=== PATIENT | male | born 1975 | race Two or more races ===

== ENCOUNTER 2017-07-28 10:55 | Inpatient (IN) | payer OTHER ==
[2017-07-28 11:21] VITALS: BMI 31.1
--- NOTE | 2017-07-28 13:43 | HP ---
CIWA Score - CIWA Score Nausea/Vomitin-Mild Nausea/No Vomiting Muscle Tremors: 4-Moderate,w/Arms Extend Anxiety: 4-Mod. Anxious/Guarded Agitation: 4-Moderately Restless Paroxysmal Sweats: 2 Orientation: 0-Oriented Tacttile Disturbances: 1-Very Mild Itch/Numbness Auditory Disturbances: 0-None Visual Disturbances: 0-None Headache: 1-Very Mild CIWA-Ar Total Score: 17 Admission ROS BHS - HPI Chief Complaint: alcohol withdrawal sx Allergies/Adverse Reactions: Allergies Allergy/AdvReac Type Severity Reaction Status Date / Time No Known Allergies Allergy Verified 07/28/17 12:30 History of Present Illness: 41 years male with long history of alcohol nicotine dependence has hypertension depression is admitted to detox Exam Limitations: No Limitations - Ebola screening Have you traveled outside of the country in the last 21 days: No Have you had contact with anyone from an Ebola affected area: No Have you been sick,other than usual withdrawal symptoms: No Do you have a fever: No - Review of Systems Constitutional: Changes in sleep, Weight Stable EENT: reports: Blurred Vision (needed eye glasses), Nose Congestion Respiratory: reports: SOB with Exertion Cardiac: reports: No Symptoms Reported GI: reports: Nausea, Poor Fluid Intake, Abdominal cramping : reports: No Symptoms Reported Musculoskeletal: reports: Back Pain, Joint Pain, Muscle Pain, Neck Pain Integumentary: reports: No Symptoms Reported Neuro: reports: Tremors Endocrine: reports: No Symptoms Reported Hematology: reports: No Symptoms Reported Psychiatric: reports: Judgement Intact, Orientated x3, Anxious, Depressed Other Systems: Reviewed and Negative Patient History - Patient Medical History Hx Anemia: No Hx Asthma: No Hx Chronic Obstructive Pulmonary Disease (COPD): No Hx Cardiac Disorders: No Hx Congestive Heart Failure: No Hx Hypertension: Yes (not on meds.) Hx Hypercholesterolemia: No Hx Pacemaker: No HX Cerebrovascular Accident: No Hx Seizures: No Hx Diabetes: No Hx Gastrointestinal Disorders: No Hx Liver Disease: No Hx Genitourinary Disorders: No Hx Sexually Transmitted Disorders: No Hx Renal Disease (ESRD): No Hx Thyroid Disease: No Hx Human Immunodeficiency Virus (HIV): No Hx Hepatitis C: No Hx Depression: Yes Hx Suicide Attempt: No Hx Bipolar Disorder: No Hx Schizophrenia: No - Patient Surgical History Past Surgical History: Yes Hx Neurologic Surgery: No Hx Cataract Extraction: No Hx Cardiac Surgery: No Hx Lung Surgery: No Hx Breast Surgery: No Hx Breast Biopsy: No Hx Abdominal Surgery: No Hx Appendectomy: No Hx Cholecystectomy: No Hx Genitourinary Surgery: No Hx Orthopedic Surgery: Yes (L mandible fx 2017) Other Surgical History: L inguinal hernia repair. "child" Anesthesia Reaction: No - PPD History Previous Implant?: Yes Documented Results: Negative w/o proof Implanted On Prior R Admission?: No PPD to be Administered?: Yes - Smoking Cessation Smoking history: Current every day smoker Have you smoked in the past 12 months: Yes Aproximately how many cigarettes per day: 20 Cigars Per Day: 0 Hx Chewing Tobacco Use: No Initiated information on smoking cessation: Yes 'Breaking Loose' booklet given: 07/28/17 - Substance & Tx. History Hx Alcohol Use: Yes Hx Substance Use: No Hx Substance Use Treatment: No (1st dertox) - Substances Abused Alcohol Route: Oral Frequency: Daily Amount used: 1 pint vodka Age of first use: 16 Date of Last Use: 07/28/17 Family Disease History - Family Disease History Family Disease History: Respiratory: Father (), Other: Father Admission Physical Exam BHS - Vital Signs Vital Signs: Vital Signs - 24 hr 07/28/17 11:16 Temperature 97.6 F Pulse Rate 86 Respiratory 18 Rate Blood Pressure 152/93 - Physical General Appearance: Yes: Appropriately Dressed, Moderate Distress, Alcohol on Breath, Tremorous, Irritable, Sweating, Anxious HEENTM: Yes: Hearing grossly Normal, Normocephalic, Normal Voice Respiratory: Yes: Chest Non-Tender, Lungs Clear, Normal Breath Sounds, No Respiratory Distress, No Accessory Muscle Use Neck: Yes: Supple, Trachea in good position Breast: Yes: Breasts Symetrical, No Discharge Cardiology: Yes: Regular Rhythm, Regular Rate, S1, S2 Abdominal: Yes: Non Tender, Flat, Soft Genitourinary: Yes: Within Normal Limits Back: Yes: Normal Inspection Musculoskeletal: Yes: full range of Motion, Gait Steady, Back pain, Muscle Pain Extremities: Yes: Normal Inspection (fell 07/27/17 multiple supervisual skin abrasion), Normal Range of Motion, Non-Tender, Tremors Neurological: Yes: Fully Oriented, Alert, Motor Strength 5/5, Normal Response, Depressed Affect Integumentary: Yes: Warm Lymphatic: Yes: Within Normal Limits - Diagnostic (1) Alcohol dependence with uncomplicated withdrawal Current Visit: Yes Status: Acute (2) Hypertension Current Visit: Yes Status: Chronic Qualifiers: Hypertension type: essential hypertension Qualified Code(s): I10 - Essential (primary) hypertension (3) Stuffy and runny nose Current Visit: Yes Status: Chronic (4) Depression (emotion) Current Visit: Yes Status: Suspected Qualifiers: Depression Type: dysthymia Qualified Code(s): F34.1 - Dysthymic disorder (5) Swelling of both ankles Current Visit: Yes Status: Chronic (6) Nicotine dependence Current Visit: Yes Status: Acute Qualifiers: Nicotine product type: cigarettes Substance use status: in withdrawal Qualified Code(s): F17.213 - Nicotine dependence, cigarettes, with withdrawal Cleared for Admission S - Detox or Rehab [facility] Level of Care: Medically Managed Detox Regimen/Protocol: Librium S Breath Alcohol Content Breath Alcohol Content: 0.073 Urine Drug Screen - Results Drug Screen Negative: Yes
[2017-07-28] MEDS ORDERED: MENTHOL/PHENOL 1 EACH UD MM PRN (13:48)
[2017-07-28] MEDS ORDERED: LOPERAMIDE HCL 2 MG CAPSULE PO PRN (13:48)
[2017-07-28] MEDS ORDERED: guaiFENesin/D-METHORPHAN HB 10 ML UNIT-DOSE CUPS PO PRN (13:48)
[2017-07-28] MEDS ORDERED: P-EPHED 60MG/TRIPROLIDI 2.5MG TABLET PO PRN (13:48)
[2017-07-28] MEDS ORDERED: MAG HYDROX/AL HYDROX/SIMETH 30 ML UNIT-DOSE CUP PO PRN (13:48)
[2017-07-28] MEDS ORDERED: MAGNESIUM CITRATE 300 ML BOTTLE PO PRN (13:48)
[2017-07-28] MEDS ORDERED: NICOTINE POLACRILEX 4 MG GUM BUC PRN (13:48)
[2017-07-28] MEDS ORDERED: MAGNESIUM HYDROX 2400MG/30ML ORAL SUSPENSION 30 ML CUP PO PRN (13:48)
[2017-07-28] MEDS ORDERED: chlordiazePOXIDE HCL 25 MG CAPSULE PO ONE (14:05)
[2017-07-28] MEDS: amLODIPine BESYLATE 10 MG TABLET (FP) PO SCH (15:06)
[2017-07-28] MEDS: LORATADINE 10 MG TABLET PO SCH (15:06)
[2017-07-28] MEDS: SODIUM CHLORIDE NASAL SPRAY 44 ML BOTTLE NS SCH ×2 (15:06→22:28)
[2017-07-28] MEDS: NICOTINE 21 MG/24 HOURS TOPICAL PATCH TD SCH (15:07)
[2017-07-28] MEDS: ACETAMINOPHEN 325 MG TABLET (FP) PO PRN (15:15)
--- NOTE | 2017-07-28 15:50 | CONSULT ---
[facility] Psychiatric Consult - Data Date of interview: 07/28/17 Admission source: [facility] Identifying data: Patient is a 41 year old single male, father of three, unemployed, and currently lives with sister. This is patient's first admission to detox at [facility]. Pt. admitted to for alcohol dependence. Substance Abuse History: Smoking Cessation. Smoking history: Current every day smoker. Have you smoked in the past 12 months: Yes. Aproximately how many cigarettes per day: 20. Cigars Per Day: 0. Hx Chewing Tobacco Use: No. Initiated information on smoking cessation: Yes. 'Breaking Loose' booklet given : 07/28/17. - Substance & Tx. History. Hx Alcohol Use: Yes. Hx Substance Use : No. Hx Substance Use Treatment: No (1st dertox). - Substances Abused. Alcohol. Route: Oral. Frequency: Daily. Amount used: 1 pint vodka. Age of first use: 16. Date of Last Use: 07/28/17 Medical History: L mandible fx 2017, hypertension, L inguinal hernia repair as a child. Psychiatric History: Patient denies h/o psychiatric hospitalization, outpatient care and suicide attempt. Patient's father in 2017 and has had a difficulty coping with his father's . Physical/Sexual Abuse/Trauma History: Denies. Mental Status Exam - Mental Status Exam Alert and Oriented to: Time, Place, Person Cognitive Function: Good Patient Appearance: Well Groomed Mood: Euthymic Affect: Mood Congruent Patient Behavior: Cooperative Speech Pattern: Clear, Appropriate Voice Loudness: Normal Thought Process: Intact, Goal Oriented Thought Disorder: Not Present Hallucinations: Denies Suicidal Ideation: Denies Homicidal Ideation: Denies Insight/Judgement: Poor Sleep: Fair Appetite: Fair Muscle strength/Tone: Normal Gait/Station: Normal Psychiatric Findings - Problem List ([place] 1, 2,3) (1) Alcohol-induced mood disorder Current Visit: Yes Status: Acute (2) Alcohol dependence with uncomplicated withdrawal Current Visit: Yes Status: Acute (3) Nicotine dependence Current Visit: Yes Status: Acute Qualifiers: Nicotine product type: cigarettes Substance use status: in withdrawal Qualified Code(s): F17.213 - Nicotine dependence, cigarettes, with withdrawal (4) Hypertension Current Visit: Yes Status: Chronic Qualifiers: Hypertension type: essential hypertension Qualified Code(s): I10 - Essential (primary) hypertension - Initial Treatment Plan Initial Treatment Plan: Psychoeducation provided. Detoxification in progress. Observation.
[2017-07-28] MEDS: chlordiazePOXIDE HCL 25 MG CAPSULE PO SCH ×2 (17:16→22:28)
[2017-07-28] MEDS: THIAMINE HCL 100 MG TABLET (FP) PO SCH (22:28)
[2017-07-28] MEDS: IBUPROFEN 400 MG TABLET (FP) PO PRN (22:28)
[2017-07-28] MEDS: MELATONIN 5 MG TABLETS PO PRN (23:00)
[2017-07-28 23:30] LABS: URINE APPEARANCE TURBID; URINE BILIRUBIN NEGATIVE (<2.0 mg/dL); URINE COLOR YELLOW; URINE GLUCOSE (UA) NEGATIVE (NEGATIVE); URINE KETONE NEGATIVE (NEGATIVE); URINE LEUK ESTERASE NEGATIVE (NEGATIVE); URINE NITRITE NEGATIVE (NEGATIVE); URINE PROTEIN NEGATIVE (NEGATIVE); URINE UROBILINOGEN NEGATIVE mg/dL (0.2-1.0)
[2017-07-29] MEDS: chlordiazePOXIDE HCL 25 MG CAPSULE PO PRN (02:09)
[2017-07-29] MEDS: chlordiazePOXIDE HCL 25 MG CAPSULE PO SCH ×4 (05:41→22:11)
[2017-07-29] MEDS: SODIUM CHLORIDE NASAL SPRAY 44 ML BOTTLE NS SCH ×3 (05:58→22:11)
--- NOTE | 2017-07-29 09:07 | EKG ---
Test Reason : Blood Pressure : / mmHG Vent. Rate : 083 BPM Atrial Rate : 083 BPM P-R Int : 160 ms QRS Dur : 096 ms QT Int : 366 ms P-R-T Axes : 025 027 028 degrees QTc Int : 430 ms NORMAL SINUS RHYTHM NON-SPECIFIC INTRA-VENTRICULAR CONDUCTION DELAY NO PREVIOUS ECGS AVAILABLE Confirmed by ARGELIA LAY MD ([id number]) on 07/29/2017 9:07:27 AM Referred By: Confirmed By:ARGELIA LYA MD
[2017-07-29 09:54] LABS: HEMATOCRIT 39.6 % (35.4-49); HEMOGLOBIN 13.8 GM/dL (11.7-16.9); MCHC 34.7 g/dl (32.0-35.9); MEAN CELL VOLUME 103.6 fl (80-96); MEAN PLT VOLUME 9.7 fl (7.5-11.1); PLATELET COUNT 190 K/MM3 (134-434); RBC 3.82 M/mm3 (4.00-5.60); RDW 13.2 % (11.9-15.9); WHITE BLOOD COUNT 5.8 K/mm3 (4.0-10.0)
[2017-07-29] MEDS: NICOTINE 21 MG/24 HOURS TOPICAL PATCH TD SCH (10:08)
[2017-07-29] MEDS: LORATADINE 10 MG TABLET PO SCH (10:08)
[2017-07-29] MEDS: amLODIPine BESYLATE 10 MG TABLET (FP) PO SCH (10:08)
[2017-07-29] MEDS: PRENATAL VITAMINS W/ FOLIC ACID TABLET (FP) PO SCH (10:08)
[2017-07-29] MEDS: IBUPROFEN 400 MG TABLET (FP) PO PRN (10:10)
[2017-07-29 10:54] LABS: CHLORIDE 109 mmol/L (98-107); POTASSIUM 3.7 mmol/L (3.5-5.1); SODIUM 145 mmol/L (136-145)
[2017-07-29 11:03] LABS: ALBUMIN 3.6 g/dl (3.4-5.0); ALK PHOS 106 U/L (45-117); ANION GAP 11 (8-16); BILIRUBIN,TOTAL 0.5 mg/dL (0.2-1.0); BLOOD UREA NITROGEN 8 mg/dL (7-18); CALCIUM 8.4 mg/dL (8.5-10.1); CO2 25 mmol/L (21-32); CREATININE 0.8 mg/dL (0.7-1.3); GLUCOSE,RANDOM 106 mg/dL (74-106); SGOT/AST 80 U/L (15-37); SGPT/ALT 73 U/L (12-78)
[2017-07-29] MEDS: ACETAMINOPHEN 325 MG TABLET (FP) PO PRN ×2 (11:21→20:17)
--- NOTE | 2017-07-29 13:51 | PN ---
[facility] CIWA - CIWA Score Nausea/Vomitin-No Nausea/No Vomiting Muscle Tremors: 3 Anxiety: 4-Mod. Anxious/Guarded Agitation: 4-Moderately Restless Paroxysmal Sweats: 4-Forehead w/Sweat Beads Orientation: 0-Oriented Tacttile Disturbances: 2-Mild Itch/Numbness/Burn Auditory Disturbances: 0-None Visual Disturbances: 0-None Headache: 0-None Present CIWA-Ar Total Score: 17 BHS Progress Note (SOAP) Subjective: Body Aches, Sweating, Anxious, Tremors, H/A, Fatigue. H/A affects lateral and occipital aspects of head. Patient reports that he fell on street [place] to loss of balance and Blackout approx. 2 days ago. Patient uncertain about whether or not he hit his head during fall. Patient was evaluated at [facility] ([place], [place]) after fall. Objective: PATIENT A & O X 3, OBSERVED AMBULATING ON UNIT. NO ACUTE DISTRESS. NO WOUNDS, ERYTHEMA, BLEEDING, OR SWELLING NOTED ANYWHERE ON PATIENT'S HEAD. PERRLA. 07/29/17 13:49 Vital Signs Temperature 96.8 F L 07/29/17 13:31 Pulse Rate 76 07/29/17 13:31 Respiratory Rate 18 07/29/17 13:31 Blood Pressure 109/72 07/29/17 13:31 O2 Sat by Pulse Oximetry (%) Laboratory Tests 07/28/17 07/29/17 07/29/17 23:10 05:50 05:50 WBC 5.8 RBC 3.82 L Hgb 13.8 Hct 39.6 MCV 103.6 H MCH 36.0 H MCHC 34.7 RDW 13.2 Plt Count 190 MPV 9.7 Sodium 145 Potassium 3.7 Chloride 109 H Carbon Dioxide 25 Anion Gap 11 BUN 8 Creatinine 0.8 Creat Clearance w eGFR > 60 Random Glucose 106 Calcium 8.4 L Total Bilirubin 0.5 AST 80 H ALT 73 Alkaline Phosphatase 106 Total Protein 7.0 Albumin 3.6 Urine Color Yellow Urine Appearance Turbid Urine pH 5.0 Ur Specific [place] 1.023 Urine Protein Negative Urine Glucose (UA) Negative Urine Ketones Negative Urine Blood Negative Urine Nitrite Negative Urine Bilirubin Negative Urine Urobilinogen Negative Ur Leukocyte Esterase Negative LABS NOTED. RPR, HIV AB RESULTS PENDING. 07/29/17 13:51 07/29/17 13:53 Assessment: 07/29/17 13:50 WITHDRAWAL SYMPTOMS. Plan: CONTINUE DETOX. INCREASE DAILY PO FLUID INTAKE. TYLENOL FOR H/A. CONTINUE TO MONITOR FOR EFFECT.
[2017-07-29] MEDS: THIAMINE HCL 100 MG TABLET (FP) PO SCH (22:11)
[2017-07-29] MEDS: MELATONIN 5 MG TABLETS PO PRN (22:12)
[2017-07-30] MEDS: chlordiazePOXIDE HCL 25 MG CAPSULE PO SCH ×2 (05:07→10:15)
[2017-07-30] MEDS: ACETAMINOPHEN 325 MG TABLET (FP) PO PRN (05:09)
[2017-07-30] MEDS: SODIUM CHLORIDE NASAL SPRAY 44 ML BOTTLE NS SCH ×3 (08:38→23:06)
[2017-07-30] MEDS: chlordiazePOXIDE HCL 25 MG CAPSULE PO PRN (09:02)
[2017-07-30] MEDS: amLODIPine BESYLATE 10 MG TABLET (FP) PO SCH (10:15)
[2017-07-30] MEDS: NICOTINE 21 MG/24 HOURS TOPICAL PATCH TD SCH (10:15)
[2017-07-30] MEDS: LORATADINE 10 MG TABLET PO SCH (10:15)
[2017-07-30] MEDS: PRENATAL VITAMINS W/ FOLIC ACID TABLET (FP) PO SCH (10:15)
[2017-07-30] MEDS ORDERED: cloNIDine HCL 0.1 MG TABLET PO ONE (14:15)
--- NOTE | 2017-07-30 15:25 | PN ---
[facility] CIWA - CIWA Score Nausea/Vomitin-No Nausea/No Vomiting Muscle Tremors: 2 Anxiety: 4-Mod. Anxious/Guarded Agitation: 4-Moderately Restless Paroxysmal Sweats: 3 Orientation: 0-Oriented Tacttile Disturbances: 2-Mild Itch/Numbness/Burn Auditory Disturbances: 0-None Visual Disturbances: 0-None Headache: 0-None Present CIWA-Ar Total Score: 15 S Progress Note (SOAP) Subjective: Sweating, Fatigue, Anxious, H/A. Objective: PATIENT A & O X 3, OBSERVED AMBULATING ON UNIT. NO ACUTE DISTRESS. 07/30/17 15:22 Vital Signs Temperature 98.6 F 07/30/17 14:32 Pulse Rate 96 H 07/30/17 14:32 Respiratory Rate 20 07/30/17 14:32 Blood Pressure 130/84 07/30/17 14:32 O2 Sat by Pulse Oximetry (%) Laboratory Tests 07/28/17 07/28/17 07/29/17 13:40 23:10 05:50 WBC 5.8 RBC 3.82 L Hgb 13.8 Hct 39.6 MCV 103.6 H MCH 36.0 H MCHC 34.7 RDW 13.2 Plt Count 190 MPV 9.7 Sodium Potassium Chloride Carbon Dioxide Anion Gap BUN Creatinine Creat Clearance w eGFR Random Glucose Calcium Total Bilirubin AST ALT Alkaline Phosphatase Total Protein Albumin Urine Color Yellow Urine Appearance Turbid Urine pH 5.0 Ur Specific [place] 1.023 Urine Protein Negative Urine Glucose (UA) Negative Urine Ketones Negative Urine Blood Negative Urine Nitrite Negative Urine Bilirubin Negative Urine Urobilinogen Negative Ur Leukocyte Esterase Negative RPR Titer HIV 1&2 Antibody Screen Negative HIV P24 Antigen Negative 07/29/17 07/29/17 05:50 05:50 WBC RBC Hgb Hct MCV MCH MCHC RDW Plt Count MPV Sodium 145 Potassium 3.7 Chloride 109 H Carbon Dioxide 25 Anion Gap 11 BUN 8 Creatinine 0.8 Creat Clearance w eGFR > 60 Random Glucose 106 Calcium 8.4 L Total Bilirubin 0.5 AST 80 H ALT 73 Alkaline Phosphatase 106 Total Protein 7.0 Albumin 3.6 Urine Color Urine Appearance Urine pH Ur Specific [place] Urine Protein Urine Glucose (UA) Urine Ketones Urine Blood Urine Nitrite Urine Bilirubin Urine Urobilinogen Ur Leukocyte Esterase RPR Titer Nonreactive HIV 1&2 Antibody Screen HIV P24 Antigen LABS NOTED. Assessment: 07/30/17 15:23 WITHDRAWAL SYMPTOMS. Plan: CONTINUE DETOX. INCREASE DAILY PO FLUID INTAKE. CLONIDINE, 0.1 MG PO BID FOR ELEVATED BP AND FOR WITHDRAWAL SYMPTOMS.
[2017-07-30] MEDS: chlordiazePOXIDE 5 MG CAPSULE PO SCH ×2 (17:51→22:10)
[2017-07-30] MEDS: cloNIDine HCL 0.1 MG TABLET PO SCH (22:10)
[2017-07-30] MEDS: THIAMINE HCL 100 MG TABLET (FP) PO SCH (22:10)
[2017-07-30] MEDS: IBUPROFEN 400 MG TABLET (FP) PO PRN (22:11)
[2017-07-30] MEDS: MELATONIN 5 MG TABLETS PO PRN (22:13)
[2017-07-31] MEDS: chlordiazePOXIDE HCL 25 MG CAPSULE PO PRN (01:30)
[2017-07-31] MEDS: chlordiazePOXIDE 5 MG CAPSULE PO SCH ×2 (05:43→10:12)
[2017-07-31] MEDS: SODIUM CHLORIDE NASAL SPRAY 44 ML BOTTLE NS SCH ×3 (07:18→22:52)
[2017-07-31] MEDS: cloNIDine HCL 0.1 MG TABLET PO SCH ×2 (10:12→22:10)
[2017-07-31] MEDS: amLODIPine BESYLATE 10 MG TABLET (FP) PO SCH (10:12)
[2017-07-31] MEDS: PRENATAL VITAMINS W/ FOLIC ACID TABLET (FP) PO SCH (10:12)
[2017-07-31] MEDS: LORATADINE 10 MG TABLET PO SCH (10:12)
[2017-07-31] MEDS: NICOTINE 21 MG/24 HOURS TOPICAL PATCH TD SCH (10:14)
[2017-07-31] MEDS: ACETAMINOPHEN 325 MG TABLET (FP) PO PRN ×2 (10:14→22:10)
--- NOTE | 2017-07-31 11:26 | PN ---
BHS Progress Note (SOAP) Subjective: C/O ANXIETY,CHILLS,INTERMITTENT SLEEP. Objective: 07/31/17 11:26 Vital Signs 07/31/17 07/31/17 07/31/17 03:30 06:06 09:58 Temperature 96.6 F L 98.6 F Pulse Rate 69 96 H Respiratory 18 18 18 Rate Blood Pressure 110/63 126/70 Laboratory Tests 07/28/17 07/28/17 07/29/17 13:40 23:10 05:50 WBC 5.8 RBC 3.82 L Hgb 13.8 Hct 39.6 MCV 103.6 H MCH 36.0 H MCHC 34.7 RDW 13.2 Plt Count 190 MPV 9.7 Sodium Potassium Chloride Carbon Dioxide Anion Gap BUN Creatinine Creat Clearance w eGFR Random Glucose Calcium Total Bilirubin AST ALT Alkaline Phosphatase Total Protein Albumin Urine Color Yellow Urine Appearance Turbid Urine pH 5.0 Ur Specific [place] 1.023 Urine Protein Negative Urine Glucose (UA) Negative Urine Ketones Negative Urine Blood Negative Urine Nitrite Negative Urine Bilirubin Negative Urine Urobilinogen Negative Ur Leukocyte Esterase Negative RPR Titer HIV 1&2 Antibody Screen Negative HIV P24 Antigen Negative 07/29/17 07/29/17 05:50 05:50 WBC RBC Hgb Hct MCV MCH MCHC RDW Plt Count MPV Sodium 145 Potassium 3.7 Chloride 109 H Carbon Dioxide 25 Anion Gap 11 BUN 8 Creatinine 0.8 Creat Clearance w eGFR > 60 Random Glucose 106 Calcium 8.4 L Total Bilirubin 0.5 AST 80 H ALT 73 Alkaline Phosphatase 106 Total Protein 7.0 Albumin 3.6 Urine Color Urine Appearance Urine pH Ur Specific [place] Urine Protein Urine Glucose (UA) Urine Ketones Urine Blood Urine Nitrite Urine Bilirubin Urine Urobilinogen Ur Leukocyte Esterase RPR Titer Nonreactive HIV 1&2 Antibody Screen HIV P24 Antigen Assessment: 07/31/17 11:26 WITHDRAWAL SX Plan: CONTINUE DETOX
[2017-07-31] MEDS: IBUPROFEN 400 MG TABLET (FP) PO PRN (17:01)
[2017-07-31] MEDS: chlordiazePOXIDE HCL 10 MG CAPSULE PO SCH ×2 (17:02→22:10)
[2017-07-31] MEDS: THIAMINE HCL 100 MG TABLET (FP) PO SCH (22:10)
[2017-07-31] MEDS: MELATONIN 5 MG TABLETS PO PRN (22:10)
[2017-08-01] MEDS: chlordiazePOXIDE HCL 10 MG CAPSULE PO SCH (05:15)
[2017-08-01] MEDS: IBUPROFEN 400 MG TABLET (FP) PO PRN (05:17)
[2017-08-01] MEDS: SODIUM CHLORIDE NASAL SPRAY 44 ML BOTTLE NS SCH (05:20)
--- NOTE | 2017-08-01 09:05 | DS ---
[facility] Detox Discharge Summary Admission Date: 07/28/17 Discharge Date: 08/01/17 - History Present History: Alcohol Dependence Additional Comments: DETOX COMPLETED. DECLINED RX FOR NORVASC. Pertinent Past History: PLEASE SEE DX BELOW - Physical Exam Results Vital Signs: Vital Signs Temperature 97.1 F L 08/01/17 06:08 Pulse Rate 75 08/01/17 06:08 Respiratory Rate 18 08/01/17 06:30 Blood Pressure 110/69 08/01/17 06:08 O2 Sat by Pulse Oximetry (%) Pertinent Admission Physical Exam Findings: WITHDRAWAL SX - Treatment Hospital Course: Detox Protocol Followed, Detoxed Safely, Responded well, Discharged Condition Good - Medication Discharge Medications: Ambulatory Orders NK [No Known Home Medication] 07/28/17 - Diagnosis (1) Alcohol dependence with uncomplicated withdrawal Current Visit: Yes Status: Acute (2) Nicotine dependence Current Visit: Yes Status: Acute Qualifiers: Nicotine product type: cigarettes Substance use status: in withdrawal Qualified Code(s): F17.213 - Nicotine dependence, cigarettes, with withdrawal (3) Hypertension Current Visit: Yes Status: Chronic Qualifiers: Hypertension type: essential hypertension Qualified Code(s): I10 - Essential (primary) hypertension - AMA Did Patient Leave Against Medical Advice: No
--- NOTE | 2017-08-01 09:06 | PN ---
BHS Progress Note (SOAP) Subjective: DETOX COMPLETED. ALERT O X 3 Objective: 08/01/17 09:05 Vital Signs 08/01/17 08/01/17 08/01/17 03:30 06:08 06:30 Temperature 97.1 F L Pulse Rate 75 Respiratory 18 18 18 Rate Blood Pressure 110/69 Laboratory Tests 07/28/17 07/28/17 07/29/17 13:40 23:10 05:50 WBC 5.8 RBC 3.82 L Hgb 13.8 Hct 39.6 MCV 103.6 H MCH 36.0 H MCHC 34.7 RDW 13.2 Plt Count 190 MPV 9.7 Sodium Potassium Chloride Carbon Dioxide Anion Gap BUN Creatinine Creat Clearance w eGFR Random Glucose Calcium Total Bilirubin AST ALT Alkaline Phosphatase Total Protein Albumin Urine Color Yellow Urine Appearance Turbid Urine pH 5.0 Ur Specific [place] 1.023 Urine Protein Negative Urine Glucose (UA) Negative Urine Ketones Negative Urine Blood Negative Urine Nitrite Negative Urine Bilirubin Negative Urine Urobilinogen Negative Ur Leukocyte Esterase Negative RPR Titer HIV 1&2 Antibody Screen Negative HIV P24 Antigen Negative 07/29/17 07/29/17 05:50 05:50 WBC RBC Hgb Hct MCV MCH MCHC RDW Plt Count MPV Sodium 145 Potassium 3.7 Chloride 109 H Carbon Dioxide 25 Anion Gap 11 BUN 8 Creatinine 0.8 Creat Clearance w eGFR > 60 Random Glucose 106 Calcium 8.4 L Total Bilirubin 0.5 AST 80 H ALT 73 Alkaline Phosphatase 106 Total Protein 7.0 Albumin 3.6 Urine Color Urine Appearance Urine pH Ur Specific [place] Urine Protein Urine Glucose (UA) Urine Ketones Urine Blood Urine Nitrite Urine Bilirubin Urine Urobilinogen Ur Leukocyte Esterase RPR Titer Nonreactive HIV 1&2 Antibody Screen HIV P24 Antigen Assessment: 08/01/17 09:05 MEDICALLY STABLE Plan: D/C PT TODAY
[2017-08-01 09:08] VITALS: BP 124/75; PULSE 92; TEMP 96.3
== END 2017-08-01 09:45 | disposition home or self-care (01) | DRG 775 ==
LOC: YASAS 10:55 → Y3N 13:56
PROVIDERS: ADMIT Family Medicine Addiction Medicine; ATTEND Family Medicine Addiction Medicine
PROC: HZ2ZZZZ Detoxification Services for Substance Abuse Treatment (ICD-10-PCS; principal; 2017-07-28)
DX: F10.230 Alcohol dependence with withdrawal, uncomplicated (principal); F17.213 Nicotine dependence, cigarettes, with withdrawal; F34.1 Dysthymic disorder; I10 Essential (primary) hypertension; R09.89 Other specified symptoms and signs involving the circulatory and respiratory systems; M25.472 Effusion, left ankle; M25.471 Effusion, right ankle
CPT/HCPCS: 36415; 80053; 81003; 85027; 86593; 87389; 93005; 93010; J0735